=== PATIENT | male | born 1990 | race Native Hawaiian/Other Pacific Islander ===

== ENCOUNTER 2018-01-26 12:33 | Emergency (ER) | payer OTHER ==
[~2018-01-26] VITALS: Ht 172.7 cm; Wt 77.1 kg
[2018-01-26 13:40] VITALS: BP 121/74; TEMP 98.6
== END 2018-01-26 13:40 | disposition home or self-care (01) ==
LOC: ED 12:33
DX: S62.390A Other fracture of second metacarpal bone, right hand, initial encounter for closed fracture (principal); W22.8XXA Striking against or struck by other objects, initial encounter
CPT/HCPCS: 99282; L3908

== ENCOUNTER 2019-12-14 07:57 | Emergency (ER) | payer OTHER ==
[~2019-12-14] VITALS: Ht 172.7 cm; Wt 70.3 kg
[2019-12-14 08:03] VITALS: TEMP 98.7
[2019-12-14 09:30] VITALS: BP 128/82
== END 2019-12-14 09:30 | disposition home or self-care (01) ==
LOC: ED 07:57
DX: S46.812A Strain of other muscles, fascia and tendons at shoulder and upper arm level, left arm, initial encounter (principal); X50.9XXA Other and unspecified overexertion or strenuous movements or postures, initial encounter; Y93.16 Activity, rowing, canoeing, kayaking, rafting and tubing; Y92.89 Other specified places as the place of occurrence of the external cause
CPT/HCPCS: 99282; 99283